=== PATIENT | male | born 1980 ===

== ENCOUNTER 2017-12-04 02:00 | Outpatient (CLI) | payer BC | END 2017-12-04 23:59 | disposition home or self-care (01) | LOC: DIABETIC 02:00 | PROVIDERS: ATTEND Family Medicine | DX: E11.9 Type 2 diabetes mellitus without complications (principal); E78.5 Hyperlipidemia, unspecified; E78.1 Pure hyperglyceridemia | CPT/HCPCS: G0108 ==